=== PATIENT | female | born 1975 | race Caucasian/White ===

== ENCOUNTER 2017-01-03 07:35 | Day surgery (SDC) | payer BC ==
[2017-01-02 10:20] LABS: CHLORIDE,CL 106 mmol/L (98-110); SODIUM,NA 139 mmol/L (136-146)
--- NOTE | 2017-01-02 12:29 | PCM.PREANE ---
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 Respiratory: Reports: no symptoms Cardiovascular: Reports: no symptoms GI: Reports: no symptoms Other: Reports: none - PHYSICAL ASSESSMENT Height: 5 ft 5 in Weight: 112.945 kg ASA Class: 2 Mental Status: alert & oriented x3 Airway Class: Mallampati = 2 Dentition: Reports: normal dentition Thyro-Mental Finger Breadths: 3 Mouth Opening Finger Breadths: 3 ROM/Head Extension: full Respiratory Status: lungs clear to auscultation bilaterally Cardiovascular Status: regular rate & rhythm, normal S1, S2, no murmur, blood pressure WNL - LAB Values: Laboratory Last Values WBC 6.79 K/uL (4.0-11.0) 01/02/17 09:57 RBC 4.57 M/uL (4.30-5.90) 01/02/17 09:57 Hgb 13.6 g/dL (12.0-16.0) 01/02/17 09:57 Hct 41.0 % (36.0-46.0) 01/02/17 09:57 MCV 89.7 fL (80.0-98.0) 01/02/17 09:57 MCH 29.8 pg (27.0-32.0) 01/02/17 09:57 MCHC 33.2 g/dL (31.0-37.0) 01/02/17 09:57 RDW Std Deviation 42.0 fl (28.0-62.0) 01/02/17 09:57 RDW Coeff of Cyn 13 % (11.0-15.0) 01/02/17 09:57 Plt Count 257 K/uL (150-400) 01/02/17 09:57 MPV 10.00 fL (7.40-12.00) 01/02/17 09:57 Sodium 139 mmol/L (136-146) 01/02/17 09:57 Potassium 4.5 mmol/L (3.5-5.1) 01/02/17 09:57 Chloride 106 mmol/L (98-110) 01/02/17 09:57 Carbon Dioxide 25 mmol/L (21-31) 01/02/17 09:57 BUN 12 mg/dL (6.0-23.0) 01/02/17 09:57 Creatinine 0.7 mg/dL (0.6-1.5) 01/02/17 09:57 Est Cr Clr Drug Dosing 97.09 mL/min 01/02/17 09:57 Estimated GFR (MDRD) > 60.0 ml/min 01/02/17 09:57 Glucose 109 mg/dL (60-110) 01/02/17 09:57 Calcium 9.1 mg/dL (8.8-10.8) 01/02/17 09:57 HCG, Quant < 1.2 mIU/mL 01/02/17 09:57 Blood Type O POSITIVE 01/02/17 09:57 Antibody Screen NEGATIVE 01/02/17 09:57 - ALLERGIES Allergies/Adverse Reactions: Allergies Allergy/AdvReac Type Severity Reaction Status Date / Time No Known Allergies Allergy Verified 12/29/16 08:18 - ANESTHESIA PLAN Free Text/Narrative:: Surgically sterile, neg HCG 01/02/17 PreAnesthesia Questionnaire HEENT History: Reports: None Cardiovascular History: Reports: None Respiratory History: Reports: None Gastrointestinal History: Reports: GERD (Occ.) Genitourinary History: Reports: Urinary incontinence 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 , : 3 Para: 2 Other OB/BYN History: 01/02/17 - Neg HCG Musculoskeletal History: Reports: None Neurological History: Reports: None Psychiatric History: Reports: None Endocrine/Metabolic History: Reports: Obesity/BMI 30+ Hematologic History: Reports: None Immunologic History: Reports: None Oncologic (Cancer) History: Reports: None Dermatologic History: Reports: None - Infectious Disease History Infectious Disease History: Reports: None - Past Surgical History Head Surgeries/Procedures: Reports: None HEENT Surgical History: Reports: None Cardiovascular Surgical History: Reports: None Respiratory Surgical History: Reports: None GI Surgical History: Reports: None Female Surgical History: Reports: Tubal ligation Other Female Surgeries/Procedures: laparoscopy with salpingectomy for ectopic - SUBSTANCE USE Smoking Status *Q: Never Smoker Recreational Drug Use History: No - HOME MEDS Home Medications: Home Meds . [No Known Home Meds] 12/29/16 [History] - CURRENT (IN HOUSE) MEDS Current Meds: Current Medications Cefazolin Sodium/Dextrose 2 gm (/ Premix) 50 mls @ 100 mls/hr IV ONETIME ONE Stop: 01/03/17 05:29 Sodium Chloride (Saline Flush) 10 ml FLUSH ASDIRECTED PRN PRN Reason: Keep Vein Open Sodium Chloride (Saline Flush) 2.5 ml FLUSH ASDIRECTED PRN PRN Reason: Keep Vein Open
[~2017-01-03 07:35] MED LIST: Lidocaine 2% 5 ML SDV ONE; Midazolam 1 MG/ML 2 ML SDV ONE; Ondansetron 4 MG/2 ML SDV ONE; Propofol 200 MG/20 ML SDV ONE; Rocuronium 10 MG/ML 10 ML Syringe ONE; Sodium Chloride 0.9% 10 ML Syringe FLUSH PRN; Sodium Chloride 0.9% 2.5 ML Syringe FLUSH PRN; ceFAZolin 2 GM in Premix Bag 1 BAG IV ONE; fentaNYL 250 MCG/5 ML SDV ONE
[2017-01-03] MEDS: Lactated Ringers 1,000 ML IV SCH ×2 (08:11→17:38)
[2017-01-03] MEDS ORDERED: Bupivacaine 0.25% 10 ML SDV ONE (09:09)
[2017-01-03] MEDS ORDERED: Lidocaine 1% with EPINEPHrine 1:100,000 20 ML MDV ONE (09:09)
[2017-01-03] MEDS ORDERED: Dexamethasone 4 MG/ML 5 ML MDV ONE (09:22)
[2017-01-03] MEDS ORDERED: HYDROmorphone 2 MG/ML Syringe ONE (09:34)
[2017-01-03] MEDS ORDERED: Furosemide 40 MG/4 ML VIAL ONE (09:36)
[2017-01-03] MEDS ORDERED: Fluorescein 5 ML Vial ONE (09:36)
[2017-01-03] MEDS ORDERED: Promethazine 12.5 MG Supp RECTAL PRN (09:40)
[2017-01-03] MEDS ORDERED: fentaNYL 100 MCG/2 ML SDV IVPUSH PRN (09:40)
[2017-01-03] MEDS ORDERED: fentaNYL 100 MCG/2 ML SDV ONE (10:11)
[2017-01-03] MEDS ORDERED: Ketorolac 30 MG/ML SDV ONE (10:22)
[2017-01-03] MEDS ORDERED: Ondansetron 4 MG/2 ML SDV IVPUSH PRN (10:42)
[2017-01-03] MEDS ORDERED: Promethazine 25 MG/ML SDV IM PRN (10:42)
[2017-01-03] MEDS ORDERED: Ketorolac 30 MG/ML SDV IVPUSH ONE (10:42)
[2017-01-03] MEDS ORDERED: Acetaminophen/oxyCODONE 325-5 MG Tab PO PRN (10:42)
[2017-01-03] MEDS ORDERED: Morphine 4 MG/ML Syringe IVPUSH PRN (10:42)
--- NOTE | 2017-01-03 10:54 | PCM.OPNOTE ---
- General Post-Op/Procedure Note Date of Surgery/Procedure: 01/03/17 Operative Procedure(s): TVH/Solyx SIS midurethral sling/cystoscopy Findings: 8-10 week uterus, normal appearing ovaries. Bilateral patent ureters Pre Op Diagnosis: Menorrhagia. VIKKI Post-Op Diagnosis: Same Anesthesia Technique: General ET tube Primary Surgeon: Carol Venegas Inspector Outside Steam Distribution: Anabel Mckenna Pathology: Uterus Fluid Replacement, Intraop: 1,600 EBL in mLs: 300 Complications: None Known Condition: Good Free Text/Narrative:: Dictation [id number]
[2017-01-03] MEDS: Belladonna Alkaloids/Opium 16.2-30 MG Supp RECTAL PRN ×2 (11:05→15:18)
--- NOTE | 2017-01-03 11:18 | PCM.POSTAN ---
POST ANESTHESIA ASSESSMENT - MENTAL STATUS Mental Status: alert, oriented - RESPIRATORY Respiratory Status: respiratory rate WNL, airway patent, O2 saturation stable - CARDIOVASCULAR CV Status: pulse rate WNL, blood pressure stable - GASTROINTESTINAL GI Status: no symptoms - POST OP HYDRATION Hydration Status: adequate & stable
[2017-01-03] MEDS: Morphine 2 MG/ML Syringe IVPUSH PRN ×2 (12:14→22:22)
[2017-01-03] MEDS ORDERED: Ketorolac 30 MG/ML SDV IVPUSH PRN (16:30)
--- NOTE | 2017-01-03 20:07 | PCM48HPAN ---
Post Anesthesia Note - EVALUATION WITHIN 48HRS OF ANESTHETIC Vital Signs in Normal Range: Yes Patient Participated in Evaluation: Yes Respiratory Function Stable: Yes Airway Patent: Yes Cardiovascular Function Stable: Yes Hydration Status Stable: Yes Pain Control Satisfactory: Yes Nausea and Vomiting Control Satisfactory: Yes Mental Status Recovered: Yes - COMMENTS/OBSERVATIONS Free Text/Narrative:: Pt has had some nausea and pain post op. Medications for each problem have been effective. Denies any problems with anesthesia.
[2017-01-03 20:28] VITALS: BP 130/81
[2017-01-04] MEDS: Morphine 2 MG/ML Syringe IVPUSH PRN (00:50)
[2017-01-04] MEDS: Acetaminophen/oxyCODONE 325-5 MG Tab PO PRN ×2 (03:52→08:21)
[2017-01-04] MEDS: Lactated Ringers 1,000 ML IV SCH (03:54)
[2017-01-04 05:37] LABS: CHLORIDE,CL 106 mmol/L (98-110); SODIUM,NA 139 mmol/L (136-146)
--- NOTE | 2017-01-04 06:12 | OR ---
SURGEON: Carol Venegas M.D. DATE OF PROCEDURE: 01/03/2017 PREOPERATIVE DIAGNOSES: 1. Menorrhagia. 2. Stress urinary incontinence. POSTOPERATIVE DIAGNOSES: 1. Menorrhagia. 2. Stress urinary incontinence. PROCEDURES: 1. Total vaginal hysterectomy with Solyx single incisional site mid urethral sling. 2. Cystoscopy. AUTO PARTS MANAGER: MD Bala. ESTIMATED BLOOD LOSS: 300 mL. FLUIDS: 600 mL crystalloid. ANESTHESIA: Endotracheal anesthesia. COMPLICATIONS: None known. FINDINGS: The uterus is 8 to 10-week size. Normal-appearing ovaries. Bilateral patent ureters with cystoscopy. DISPOSITION: The patient to recovery room stable. SPECIMENS: Pathology. PROCEDURE IN DETAIL: Collette is a 41-year-old female, who has ongoing difficulties with menorrhagia. At this time, she elected to proceed with definitive surgical intervention from hysterectomy. She is a candidate for vaginal hysterectomy. Risks of the procedure have been discussed and informed consent obtained. In addition, she is also having difficulties with stress urinary continence. Cystometry has been performed and indicates she is reasonable candidate for a mid urethral sling. She would like to proceed with single incision site mid urethral sling at the time of here hysterectomy. Again, the procedure was discussed and informed proper consent was obtained. The patient was taken operating room, where she underwent general endotracheal anesthesia, was then placed in modified dorsal lithotomy position, was prepped and draped in the usual sterile fashion. SCDs to lower extremities. Merino to gravity. Received Ancef prophylactically. Time-out was performed. A weighted speculum was introduced into the vagina, anterior Ning sidewall retractors. Cervix was grasped with Benjamin clamps and circumscribed with Bovie cautery, anterior posteriorly the overlying mucosa was dissected away from underlying peritoneum. The peritoneum was tented downward midline and entered sharply. A longer weighted speculum was replaced with shorter. Anteriorly, the peritoneum was tented upward and entered sharply. The anterior Ning mobilized the bladder away from the operative field. In serial fashion, using a gently curved Kang clamps, the uterosacral ligaments were secured on either side, transected, and suture ligated with 2-0 Vicryl. Remainder of suture will be 2-0 Vicryl unless otherwise mentioned. In serial fashion, now the base of the cardinal ligament, remainder of the cardinal ligament space of the mid broad ligament including round ligament, and utero tubo-ovarian pedicle on either side were able to be secured, transected, and suture ligated. Uterus was now handed off to technical specialist cytogenetics to be sent to Pathology for further analysis. The pedicles were closely inspected and appeared normal. There are normal-appearing ovaries. The uterosacral ligament on either side is now plicated to the vaginal apex. The posterior cuff tissue is thicker in nature with a fair amount of subcu tissue to it, therefore, in order to reduce the risk of the enterocele from forming, a single 2-0 Vicryl was secured the left uterosacral ligament, reefing the posterior peritoneum, and then securing the right uterosacral ligament and tied this suture down for culdoplasty. Pedicles once again inspected and found to be hemostatic. Therefore, the cuff was closed using 0 Vicryl in continuous running locked fashion. The cuff line was inspected and found to be hemostatic. Attention was now turned to performing the mid urethral sling. The vaginal mucosa in the midline directly below the urethral meatus was able to be isolated with Allis clamps. Using a 15 blade scalpel, a midline sagittal incision was created approximately 8 mm in size. The mucosa on either side of the incision was now grasped with an Allis. After the region had been prepped for hydrodissection, the tissue was now dissected sharply and bluntly along the periurethral space until the medial aspect of the pubis ramus bone was able to be palpated on either side. The Solyx introducer was now introduced through the right side of the vaginal incision introducing through the periurethral space until able to palpate the medial aspect of the pubic ramus bone and moving the introducer just slightly cephalic approximately 5 mm, and then introducing into the transobturator muscle. Care was taken to protect the sulcus during this time. The tape was now released into the muscle removing the introducer from the sling edge. In a similar aspect, performed on the patient's right side taking care to note the midline marking of the sling in keeping it within the midline during the procedure. At this point, once the introducer had been placed through the left aspect of the vaginal incision to the level of the pubis ramus medially and introducing the guide into the obturator muscle, care was now taken to remove the Merino catheter back fill the bladder 240 mL of normal saline and performing Valsalva maneuvers. No leakage was noted. The catheter passes easily through the urethral meatus. The tape appears to be appropriately secured along the mid urethral tissue, therefore, the introducer was removed from this side of the tape. The vaginal mucosa was now replicated using 3-0 Vicryl in continuous running locked fashion. The cystoscope was introduced at this juncture. The left ureteral orifice followed by the right ureteral orifice were able to be visualized. Fluorescein dyed urine was seen streaming from them, helping to ensure ureteral patency. The kari trigone area was again closely inspected. No region of the perforation were noted. The dome of the bladder was inspected and found to be intact. The bladder was drained. The cystoscope was removed. Merino catheter was replaced to be removed by insulation later. The cuff was once again inspected and found to be hemostatic. The patient has tolerated the procedure well overall. She will go to PACU in stable condition. Sponge, instrument, and needle counts correct x2. Specimens to Pathology. CLIFF / DAVID /[id number]
--- NOTE | 2017-01-04 08:56 | PCM.SURGPN ---
- General Info Date of Service: 01/04/17 POD#: 1 Admission Diagnosis/Problem: Menorrhagia Functional Status: Reports: pain controlled, tolerating diet, ambulating, urinating - Review of Systems General: Denies: fever, fatigue Pulmonary: Denies: shortness of breath, wheezing Cardiovascular: Denies: chest pain, palpitations, lightheadedness Gastrointestinal: Denies: Nausea, Vomiting Genitourinary: Denies: flank pain Neurological: Reports: no symptoms Psychiatric: Reports: no symptoms - Patient Data Vitals - most recent: Last Vital Signs Temp 36.4 C 01/03/17 20:00 Pulse 94 01/03/17 19:21 Resp 12 01/03/17 20:00 BP 130/81 01/03/17 20:00 Pulse Ox 96 01/03/17 20:00 Weight - most recent: 112.945 kg I&O - last 24 hours: Intake & Output 01/03/17 01/04/17 01/04/17 22:59 06:59 14:59 Output Total 433 875 Balance -475 -875 Lab Results last 24 hrs: Laboratory Results - last 24 hr 01/04/17 01/04/17 Range/Units 04:58 04:58 WBC 10.41 (4.0-11.0) K/uL RBC 3.53 L (4.30-5.90) M/uL Hgb 10.3 L (12.0-16.0) g/dL Hct 31.4 L (36.0-46.0) % MCV 89.0 (80.0-98.0) fL MCH 29.2 (27.0-32.0) pg MCHC 32.8 (31.0-37.0) g/dL RDW Std Deviation 42.9 (28.0-62.0) fl RDW Coeff of Cyn 13 (11.0-15.0) % Plt Count 230 (150-400) K/uL MPV 10.10 (7.40-12.00) fL Neut % (Auto) 68.1 (48.0-80.0) % Lymph % (Auto) 18.4 (16.0-40.0) % [place] % (Auto) 13.4 (0.0-15.0) % Eos % (Auto) 0.0 (0.0-7.0) % Baso % (Auto) 0.1 (0.0-1.5) % Neut # 7.1 H (1.4-5.7) K/uL Lymph # 1.9 (0.6-2.4) K/uL [place] # 1.4 H (0.0-0.8) K/uL Eos # 0.0 (0.0-0.7) K/uL Baso # 0.0 (0.0-0.1) K/uL Nucleated RBC % 0.0 /100WBC Nucleated RBCs # 0 K/uL Sodium 139 (136-146) mmol/L Potassium 4.1 (3.5-5.1) mmol/L Chloride 106 (98-110) mmol/L Carbon Dioxide 26 (21-31) mmol/L BUN 12 (6.0-23.0) mg/dL Creatinine 0.7 (0.6-1.5) mg/dL Est Cr Clr Drug Dosing 97.09 mL/min Estimated GFR (MDRD) > 60.0 ml/min Glucose 111 H (60-110) mg/dL Calcium 8.1 L (8.8-10.8) mg/dL Med Orders - Current: Current Medications Belladonna Alkaloids/Opium (B & O Supprettes No. 15a) 1 supp RECTAL Q4H PRN PRN Reason: Pain Last Admin: 01/03/17 15:18 Dose: 1 supp Fentanyl (Sublimaze) 50 mcg IVPUSH SEECOMMENT PRN PRN Reason: Pain (moderate 4-6) Lactated Ringer's (Ringers, Lactated) 1,000 mls @ 100 mls/hr IV ASDIRECTED [facility] Last Infusion: 01/04/17 08:24 Dose: 100 mls/hr Ketorolac Tromethamine (Toradol) 30 mg IVPUSH Q6H PRN PRN Reason: Pain (severe 7-10) Stop: 01/08/17 16:31 Last Admin: 01/03/17 16:22 Dose: 30 mg Morphine Sulfate (Morphine) 2 mg IVPUSH Q2H PRN PRN Reason: Pain (severe 7-10) Last Admin: 01/04/17 00:50 Dose: 2 mg Morphine Sulfate (Morphine) 4 mg IVPUSH Q2H PRN PRN Reason: Pain (severe 7-10) Last Admin: 01/03/17 14:15 Dose: 4 mg Ondansetron HCl (Zofran) 4 mg IVPUSH Q6H PRN PRN Reason: Nausea/Vomiting Last Admin: 01/03/17 18:17 Dose: 4 mg Oxycodone/Acetaminophen (Percocet 325-5 Mg) 1 tab PO Q4H PRN PRN Reason: Pain (moderate 4-6) Last Admin: 01/03/17 20:18 Dose: 1 tab Oxycodone/Acetaminophen (Percocet 325-5 Mg) 2 tab PO Q4H PRN PRN Reason: Pain (moderate 4-6) Last Admin: 01/04/17 08:21 Dose: 2 tab Promethazine HCl (Phenadoz) 12.5 - 25 mg RECTAL ASDIRECTED PRN PRN Reason: Nausea/Vomiting Promethazine HCl (Phenergan) 25 mg IM Q6H PRN PRN Reason: Nausea/Vomiting Sodium Chloride (Saline Flush) 10 ml FLUSH ASDIRECTED PRN PRN Reason: Keep Vein Open Sodium Chloride (Saline Flush) 2.5 ml FLUSH ASDIRECTED PRN PRN Reason: Keep Vein Open Discontinued Medications Bupivacaine HCl (Sensorcaine-Mpf 0.25%) Confirm Administered Dose 10 ml .ROUTE .STK-MED ONE Stop: 01/03/17 09:10 Dexamethasone (Dexamethasone) Confirm Administered Dose 20 mg .ROUTE .STK-MED ONE Stop: 01/03/17 09:23 Fentanyl (Sublimaze) Confirm Administered Dose 250 mcg .ROUTE .STK-MED ONE Stop: 01/03/17 07:24 Fentanyl (Sublimaze) Confirm Administered Dose 100 mcg .ROUTE .STK-MED ONE Stop: 01/03/17 10:12 Fluorescein Sodium (Ak-Fluor) Confirm Administered Dose 5 ml .ROUTE .STK-MED ONE Stop: 01/03/17 09:37 Furosemide (Lasix) Confirm Administered Dose 40 mg .ROUTE .STK-MED ONE Stop: 01/03/17 09:37 Hydromorphone HCl (Dilaudid) Confirm Administered Dose 2 mg .ROUTE .STK-MED ONE Stop: 01/03/17 09:35 Cefazolin Sodium/Dextrose 2 gm (/ Premix) 50 mls @ 100 mls/hr IV ONETIME ONE Stop: 01/03/17 05:29 Ketorolac Tromethamine (Toradol) Confirm Administered Dose 30 mg .ROUTE .STK- MED ONE Stop: 01/03/17 10:23 Ketorolac Tromethamine (Toradol) 30 mg IVPUSH ONETIME ONE Stop: 01/03/17 10:43 Lidocaine (Xylocaine-Mpf 2%) Confirm Administered Dose 5 ml .ROUTE .STK-MED ONE Stop: 01/03/17 07:24 Lidocaine/Epinephrine (Xylocaine 1% With Epinephrine 1:100,000) Confirm Administered Dose 20 ml .ROUTE .STK-MED ONE Stop: 01/03/17 09:10 Midazolam HCl (Versed 1 Mg/Ml) Confirm Administered Dose 2 mg .ROUTE .STK-MED ONE Stop: 01/03/17 07:24 Ondansetron HCl (Zofran) Confirm Administered Dose 4 mg .ROUTE .STK-MED ONE Stop: 01/03/17 07:24 Propofol (Diprivan 20 Ml) Confirm Administered Dose 200 mg .ROUTE .STK-MED ONE Stop: 01/03/17 07:24 Rocuronium [place] (Zemuron) Confirm Administered Dose 100 mg .ROUTE .STK-MED ONE Stop: 01/03/17 07:24 - Exam General: alert, oriented Lungs: Normal respiratory effort Cardiovascular: regular rate, regular rhythm Abdomen: bowel sounds present, soft. No: CVA tenderness Extremities: no calf tenderness Skin: warm, dry, intact Psy/Mental Status: alert, normal affect - Problem List & Annotations (1) Menorrhagia SNOMED Code(s): 148634811 Code(s): N92.0 - EXCESSIVE AND FREQUENT MENSTRUATION WITH REGULAR CYCLE Status: Acute Current Visit: Yes (2) Stress incontinence SNOMED Code(s): 03091993 Code(s): N39.3 - STRESS INCONTINENCE (FEMALE) (MALE) Status: Acute Current Visit: Yes - Problem List Review Problem List Initiated/Reviewed/Updated: Yes - My Orders Last 24 Hours: Active Orders 24 hr Category Date Time Status Patient Status [ADT] Routine ADT 01/03/17 10:42 Active Antiembolic Devices [RC] PER UNIT ROUTINE Care 01/03/17 10:43 Active EKG 12 Lead [EKG Documentation Completion] [RC] AM Care 01/03/17 08:23 Active May Shower [RC] ASDIRECTED Care 01/03/17 10:42 Active Notify Provider Intake and Out [RC] ASDIRECTED Care 01/03/17 10:42 Active Notify Provider Vital Signs [RC] ASDIRECTED Care 01/03/17 10:42 Active RT Incentive Spirometry [RC] Q2HWA Care 01/03/17 10:42 Active Ready for Discharge [RC] PER UNIT ROUTINE Care 01/04/17 08:48 Ordered Up With Assistance [RC] PER UNIT ROUTINE Care 01/03/17 10:42 Active Up ad Barbie [RC] PER UNIT ROUTINE Care 01/03/17 10:42 Active Urinary Catheter Removal [RC] Per Unit Routine Care 01/03/17 10:42 Active Vital Signs [RC] PER UNIT ROUTINE Care 01/03/17 10:42 Active Regular Diet [DIET] Diet 01/03/17 Dinner Active Acetaminophen/oxyCODONE [Percocet 325-5 MG] Med 01/03/17 10:42 Active 1 tab PO Q4H PRN Acetaminophen/oxyCODONE [Percocet 325-5 MG] Med 01/03/17 10:42 Active 2 tab PO Q4H PRN Belladonna/Opium [B & O Supprettes No. 15A] Med 01/03/17 10:45 Active 1 supp RECTAL Q4H PRN Ketorolac [Toradol] Med 01/03/17 16:30 Active 30 mg IVPUSH Q6H PRN Morphine Med 01/03/17 10:42 Active 2 mg IVPUSH Q2H PRN Morphine Med 01/03/17 10:42 Active 4 mg IVPUSH Q2H PRN Ondansetron [Zofran] Med 01/03/17 10:42 Active 4 mg IVPUSH Q6H PRN Promethazine [Phenadoz] Med 01/03/17 09:40 Active 12.5 - 25 mg RECTAL ASDIRECTED PRN Promethazine [Phenergan] Med 01/03/17 10:42 Active 25 mg IM Q6H PRN fentaNYL [Sublimaze] Med 01/03/17 09:40 Active 50 mcg IVPUSH SEECOMMENT PRN Peripheral IV Discontinue [OM.PC] Routine Oth 01/03/17 10:42 Ordered Sequential Compression Device [OM.PC] Per Unit Routine Oth 01/03/17 10:42 Ordered Resuscitation Status Routine Resus Stat 01/03/17 10:42 Ordered Medication Orders Belladonna Alkaloids/Opium (B & O Supprettes No. 15a) 1 supp RECTAL Q4H PRN PRN Reason: Pain Last Admin: 01/03/17 15:18 Dose: 1 supp Admin: 01/03/17 11:05 Dose: 1 supp Fentanyl (Sublimaze) 50 mcg IVPUSH SEECOMMENT PRN PRN Reason: Pain (moderate 4-6) Lactated Ringer's (Ringers, Lactated) 1,000 mls @ 100 mls/hr IV ASDIRECTED [facility] Last Infusion: 01/04/17 08:24 Dose: 100 mls/hr Admin: 01/04/17 03:54 Dose: 100 mls/hr Infusion: 01/04/17 03:38 Dose: 100 mls/hr Admin: 01/03/17 17:38 Dose: 100 mls/hr Infusion: 01/03/17 17:38 Dose: 100 mls/hr Admin: 01/03/17 08:11 Dose: 100 mls/hr Ketorolac Tromethamine (Toradol) 30 mg IVPUSH Q6H PRN PRN Reason: Pain (severe 7-10) Stop: 01/08/17 16:31 Last Admin: 01/03/17 16:22 Dose: 30 mg Morphine Sulfate (Morphine) 2 mg IVPUSH Q2H PRN PRN Reason: Pain (severe 7-10) Last Admin: 01/04/17 00:50 Dose: 2 mg Admin: 01/03/17 22:22 Dose: 2 mg Admin: 01/03/17 12:14 Dose: 2 mg Morphine Sulfate (Morphine) 4 mg IVPUSH Q2H PRN PRN Reason: Pain (severe 7-10) Last Admin: 01/03/17 14:15 Dose: 4 mg Ondansetron HCl (Zofran) 4 mg IVPUSH Q6H PRN PRN Reason: Nausea/Vomiting Last Admin: 01/03/17 18:17 Dose: 4 mg Oxycodone/Acetaminophen (Percocet 325-5 Mg) 1 tab PO Q4H PRN PRN Reason: Pain (moderate 4-6) Last Admin: 01/03/17 20:18 Dose: 1 tab Oxycodone/Acetaminophen (Percocet 325-5 Mg) 2 tab PO Q4H PRN PRN Reason: Pain (moderate 4-6) Last Admin: 01/04/17 08:21 Dose: 2 tab Admin: 01/04/17 03:52 Dose: 2 tab Promethazine HCl (Phenadoz) 12.5 - 25 mg RECTAL ASDIRECTED PRN PRN Reason: Nausea/Vomiting Promethazine HCl (Phenergan) 25 mg IM Q6H PRN PRN Reason: Nausea/Vomiting Sodium Chloride (Saline Flush) 10 ml FLUSH ASDIRECTED PRN PRN Reason: Keep Vein Open Sodium Chloride (Saline Flush) 2.5 ml FLUSH ASDIRECTED PRN PRN Reason: Keep Vein Open - Assessment Assessment (Free Text/Narrative):: POD 1 status post TVH/SIS midurethral sling/cystoscopy - Plan Plan (Free Text/Narrative):: Patient is doing well overall--labs are stable, VS are stable. Ambulating, voiding, pain controlled with oral pain meds. Would like to go home. Discharge instructions reviewed. Infection and bleeding warnings reviewed. Follow up at [facility] 2 and 6 weeks. Discharge to home today.
== END 2017-01-04 10:15 | disposition home or self-care (01) ==
LOC: MW.SDS 07:35 → MW.OB 12:33 → MW.SDS 01-04 10:15
PROVIDERS: ATTEND Obstetrics & Gynecology
PROC: 0UT97ZZ Resection of Uterus, Via Natural or Artificial Opening (ICD-10-PCS; principal; 2017-01-03)
PROC: 0UTC7ZZ Resection of Cervix, Via Natural or Artificial Opening (ICD-10-PCS; 2017-01-03)
PROC: 0TSD4ZZ Reposition Urethra, Percutaneous Endoscopic Approach (ICD-10-PCS; 2017-01-03)
DX: N80.0 Endometriosis of uterus (principal); N81.4 Uterovaginal prolapse, unspecified
CPT/HCPCS: 36415; 57288; 58260; 80048; 84702; 85025; 85027; 86850; 86900; 86901; 88307; 93005; A9270; C1781; J0690; J1100; J1170; J1885; J1940; J2250; J2270; J2405; J3010; J7120; 00944; J2704